=== PATIENT | female | born 1945 | race Caucasian/White ===

== ENCOUNTER 2017-12-21 08:00 | Inpatient (IN) | payer OTHER ==
[~2017-12-21] VITALS: Ht 165.1 cm; Wt 101.6 kg
[2017-12-21] MEDS ORDERED: ATORVASTATIN CA10 MG PO (10:06)
[2017-12-21] MEDS ORDERED: FORTAMET1000 MG PO (10:06)
[2017-12-21] MEDS ORDERED: SYNTHROID137 MCG PO (10:06)
[2017-12-21] MEDS ORDERED: LISINOPRIL10 MG PO (10:06)
[2017-12-21] MEDS ORDERED: LANTUS SOL100 UNIT/1 (10:07)
[2017-12-21] MEDS ORDERED: GABAPENTIN100 MG PO (10:07)
[2017-12-28] MEDS ORDERED: SYNTHROID137 MCG PO (15:15)
[2017-12-30] MEDS ORDERED: VITAMIN B122500 MCG PO (08:47)
[2017-12-30] MEDS ORDERED: PERCOCET 5-3251 EACH PO (16:43)
[2017-12-30] MEDS ORDERED: XARELTO10 MG PO (16:43)
[2017-12-30] MEDS ORDERED: CIPRO500 MG PO (16:43)
== END 2017-12-30 18:45 | DRG 470 ==
LOC: SURH 12-28 05:40 → O/R 12-28 05:40 → SURH 12-28 07:00
PROVIDERS: Orthopaedic Surgery
PROC: 0MNP0ZZ Release Left Knee Bursa and Ligament, Open Approach (ICD-10-PCS; 2017-12-28)
PROC: 0SRD0J9 Replacement of Left Knee Joint with Synthetic Substitute, Cemented, Open Approach (ICD-10-PCS; principal; 2017-12-28 07:00)
DX: M17.12 Unilateral primary osteoarthritis, left knee (principal); D62 Acute posthemorrhagic anemia; M81.0 Age-related osteoporosis without current pathological fracture; E66.01 Morbid (severe) obesity due to excess calories; I10 Essential (primary) hypertension; E11.9 Type 2 diabetes mellitus without complications; Z79.4 Long term (current) use of insulin; E03.8 Other specified hypothyroidism

== ENCOUNTER → 2018-01-03 | Emergency (ER) | payer OTHER ==
[~2018-01-03] VITALS: Ht 160 cm; Wt 101.6 kg
[~2018-01-03] MED LIST: ATORVASTATIN CA10 MG PO; CIPRO500 MG PO; FORTAMET1000 MG PO; GABAPENTIN100 MG PO; LANTUS SOL100 UNIT/1; LISINOPRIL10 MG PO; PERCOCET 5-3251 EACH PO; SYNTHROID137 MCG PO; VITAMIN B122500 MCG PO; XARELTO10 MG PO
== END | disposition home or self-care (01) ==
LOC: ER 13:21
DX: G89.18 Other acute postprocedural pain (principal); M79.662 Pain in left lower leg; R60.0 Localized edema

== ENCOUNTER 2023-11-05 11:45 | Inpatient (IN) | payer OTHER ==
[~2023-11-05] VITALS: Ht 152.4 cm; Wt 92.1 kg
[2023-11-05] MEDS ORDERED: TRIJARDY XR 121 EACH PO (12:59)
[2023-11-05] MEDS ORDERED: TOPROL XL50 M1 PO (13:00)
[2023-11-05] MEDS ORDERED: ATORVASTATIN CA10 MG PO (13:00)
[2023-11-05] MEDS ORDERED: ZESTRIL20 MG PO (13:00)
[2023-11-15] MEDS ORDERED: PERCOCET 5-3251 EACH PO (10:09)
[2023-11-15] MEDS ORDERED: BACTRIM DS TAB1 EACH PO (10:09)
[2023-11-15] MEDS ORDERED: MEDROLPACK PO (10:09)
[2023-11-15] MEDS ORDERED: COLACE100 MG PO (10:10)
[2023-11-15] MEDS ORDERED: GABAPENTIN100 M2 PO (10:10)
[2023-11-15] MEDS ORDERED: NEURONTIN800 MG PO (10:10)
[2023-11-16 07:11] LABS: CREATININE SERUM 0.82 mg/dL (0.55-1.02); GFR 67.6; POTASSIUM 4.74 mEq/L (3.5-5.1)
[2023-11-16 07:13] LABS: HEMATOCRIT 35.7 % (36.0-45.00); HEMOGLOBIN 11.8 g/dL (12.0-15.00); MEAN CELL VOLUME 93.4 fL (80.00-100.00); MEAN CORPUSCULAR HEMOGLOBIN 30.8 pg (27.00-32.0); PLATELET COUNT 210 K/uL (150-450); RED BLOOD COUNT 3.82 M/uL (4.00-6.00); RED CELL DISTRIBUTION WIDTH 15.5 % (11.5-14.5)
== END 2023-11-17 13:48 | disposition home or self-care (01) | DRG 455 ==
LOC: O/R 11-15 05:50 → SURH 11-15 10:30 → PED 11-15 14:45
PROVIDERS: ADMIT Orthopaedic Surgery Orthopaedic Surgery of the Spine; ATTEND Orthopaedic Surgery Orthopaedic Surgery of the Spine
PROC: 0SG107J Fusion of 2 or more Lumbar Vertebral Joints with Autologous Tissue Substitute, Posterior Approach, Anterior Column, Open Approach (ICD-10-PCS; 2023-11-15)
PROC: XRGC0R7 Fusion of 2 or more Lumbar Vertebral Joints using Custom-Made Anatomically Designed Interbody Fusion Device, Open Approach, New Technology Group 7 (ICD-10-PCS; 2023-11-15)
PROC: 0ST20ZZ Resection of Lumbar Vertebral Disc, Open Approach (ICD-10-PCS; 2023-11-15)
PROC: 0QB20ZZ Excision of Right Pelvic Bone, Open Approach (ICD-10-PCS; 2023-11-15)
PROC: 07DR0ZZ Extraction of Iliac Bone Marrow, Open Approach (ICD-10-PCS; 2023-11-15)
PROC: 4A1104G Monitoring of Peripheral Nervous Electrical Activity, Intraoperative, Open Approach (ICD-10-PCS; 2023-11-15)
PROC: 0SG1071 Fusion of 2 or more Lumbar Vertebral Joints with Autologous Tissue Substitute, Posterior Approach, Posterior Column, Open Approach (ICD-10-PCS; principal; 2023-11-15 10:30)
DX: M48.062 Spinal stenosis, lumbar region with neurogenic claudication (principal); M41.56 Other secondary scoliosis, lumbar region; M51.36 Other intervertebral disc degeneration, lumbar region